=== PATIENT | female | born 1980 | race Caucasian/White ===

== ENCOUNTER 2017-08-12 19:15 | Emergency (ER) | payer SELFPAY ==
[~2017-08-12] VITALS: Ht 177.8 cm; Wt 100.0 kg
[~2017-08-12 19:15] MED LIST: CLIN1CAP5 PO; IBUP800T23 PO; OMEP20TA39 PO; ZOLP10TA3 PO
[2017-08-12 19:23] VITALS: BP 145/92; PULSE 101; RESP 18; TEMP 97.3; O2SAT 94
[2017-08-12] MEDS ORDERED: SODIUM CHLOR 0.9% 1000 ML INJ 1,000 ML IV ONE (20:45)
[2017-08-12] MEDS ORDERED: ONDANSETRON ODT 4 MG TAB PO ONE (20:45)
[2017-08-12] MEDS ORDERED: KETOROLAC TROMETHAMINE 30 MG/ML (IVP) VIAL IV PUSH ONE (20:45)
--- NOTE | 2017-08-12 20:48 | PD ---
HPI Chief Complaint: Abdominal Pain Time Seen by Provider: 20:22 Travel History International Travel<30 days: No Contact w/Intl Traveler<30days: No Traveled to known affect area: No History of Present Illness HPI 37-year-old female complains of abdominal pain, nausea vomiting diarrhea. Patient states that symptoms started 3 days ago. Patient had a syncopal episode this evening. Patient has history of recurrent syncope in the past. 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 Patient was advised salt loading increase fluids. Patient has been doing well without syncopal episode for a long time. Patient states that she started having abdominal cramping with nausea vomiting diarrhea for the past 3 days. She states that symptoms are worse today. Patient states that she passed out this evening at home. Patient states that she has aching headache diffuse over the head since last night. Patient denies any visual change. Patient denies any neck pain. Patient denies any chest pain or shortness of breath. Patient states abdominal pain and cramping pain diffuse of the abdomen. Patient denies any pain radiation. Patient denies any dysuria frequency. Patient denies any vaginal discharge or bleeding. Patient denies any fever chills. Patient states that she did not injure herself during the syncopal episode. PFSH Past Medical History Heart Rhythm Problems: Yes (cardiogenic sycope ) Diminished Hearing: No Tetanus Vaccination: Unknown Influenza Vaccination: No ?: Not LMP: 07/28/2017 Past Surgical History Cholecystectomy: Yes Other Surgery: Yes (breast augmentation and tummy tuck) Social History Alcohol Use: No Tobacco Use: No Substance Use: No Allergies-Medications (Allergen,Severity, Reaction): Coded Allergies: amoxicillin (Unverified Allergy, Unknown, 08/12/17) Reported Meds & Prescriptions Reported Meds & Active Scripts Active Ibuprofen 800 Mg Tab 800 Mg PO TID 10 Days Clindamycin Hcl (Clindamycin HCl) 150 Mg Cap 300 Mg PO Q6H 10 Days Reported Hm Omeprazole (Omeprazole) 20 Mg Tab 40 Mg PO DAILY Ambien 10 Mg Tab (Zolpidem Tartrate) 10 Mg Tab 10 Mg PO HS Review of Systems General / Constitutional: No: Fever Eyes: No: Visual changes HENT: No: Headaches Cardiovascular: No: Chest Pain or Discomfort Respiratory: No: Shortness of Breath Gastrointestinal: Positive: Nausea, Vomiting, Diarrhea, Abdominal Pain Genitourinary: No: Dysuria Musculoskeletal: No: Pain Skin: No Rash Neurologic: No: Weakness Psychiatric: No: Depression Endocrine: No: Polydipsia Hematologic/Lymphatic: No: Easy Bruising Physical Exam Narrative GENERAL: Well-nourished, well-developed patient. SKIN: Focused skin assessment warm/dry. HEAD: Normocephalic. EYES: No scleral icterus. No injection or drainage. Pupils equal round reactive. NECK: Supple, trachea midline. No JVD or lymphadenopathy. No meningismus CARDIOVASCULAR: Regular rate and rhythm without murmurs, gallops, or rubs. RESPIRATORY: Breath sounds equal bilaterally. No accessory muscle use. GASTROINTESTINAL: Abdomen soft, nondistended. Patient has mild diffuse tenderness over the abdomen. No rebound tenderness. No mass. MUSCULOSKELETAL: No cyanosis, or edema. BACK: Nontender without obvious deformity. No CVA tenderness. Neurologic exam normal. Data Data Last Documented VS Vital Signs Date Time Temp Pulse Resp B/P (MAP) Pulse Ox O2 Delivery O2 Flow Rate FiO2 08/12/17 19:23 97.3 101 18 145/92 (109) 94 Orders Orders Complete Blood Count With Diff (08/12/17 20:32) Comprehensive Metabolic Panel (08/12/17 20:32) Lipase (08/12/17 20:32) Urinalysis - C+S If Indicated (08/12/17 20:32) Iv Access Insert/Monitor (08/12/17 20:32) Ecg Monitoring (08/12/17 20:32) Oximetry (08/12/17 20:32) Ed Urine Pregnancytest Poc (08/12/17 20:32) Ct Brain W/O Iv Contrast(Rout) (08/12/17 20:32) Sodium Chlor 0.9% 1000 Ml Inj (Ns 1000 M (08/12/17 20:45) Ondansetron Odt (Zofran Odt) (08/12/17 20:45) Ketorolac Inj (Toradol Inj) (08/12/17 20:45) Drug Screen, Random Urine (08/12/17 21:50) Metoclopramide Inj (Reglan Inj) (08/12/17 22:00) Diphenhydramine Inj (Benadryl Inj) (08/12/17 22:00) Ct Abd/Pel W Iv Contrast(Rout) (08/12/17 21:53) Urine Culture (08/12/17 21:50) Iohexol 350 Inj (Omnipaque 350 Inj) (08/12/17 22:34) Labs Laboratory Tests Test 08/12/17 21:05 08/12/17 21:50 White Blood Count 19.5 TH/MM3 Red Blood Count 4.20 MIL/MM3 Hemoglobin 11.0 GM/DL Hematocrit 33.3 % Mean Corpuscular Volume 79.3 FL Mean Corpuscular Hemoglobin 26.2 PG Mean Corpuscular Hemoglobin Concent 33.0 % Red Cell Distribution Width 17.5 % Platelet Count 298 TH/MM3 Mean Platelet Volume 8.9 FL Neutrophils (%) (Auto) 84.3 % Lymphocytes (%) (Auto) 9.0 % Monocytes (%) (Auto) 6.3 % Eosinophils (%) (Auto) 0.1 % Basophils (%) (Auto) 0.3 % Neutrophils # (Auto) 16.5 TH/MM3 Lymphocytes # (Auto) 1.8 TH/MM3 Monocytes # (Auto) 1.2 TH/MM3 Eosinophils # (Auto) 0.0 TH/MM3 Basophils # (Auto) 0.1 TH/MM3 CBC Comment DIFF FINAL Differential Comment Blood Urea Nitrogen 11 MG/DL Creatinine 0.86 MG/DL Random Glucose 136 MG/DL Total Protein 8.2 GM/DL Albumin 4.1 GM/DL Calcium Level 8.7 MG/DL Alkaline Phosphatase 73 U/L Aspartate Amino Transf (AST/SGOT) 46 U/L Alanine Aminotransferase (ALT/SGPT) 51 U/L Total Bilirubin 0.2 MG/DL Sodium Level 140 MEQ/L Potassium Level 3.9 MEQ/L Chloride Level 107 MEQ/L Carbon Dioxide Level 19.2 MEQ/L Anion Gap 14 MEQ/L Estimat Glomerular Filtration Rate 75 ML/MIN Lipase 86 U/L Urine Color YELLOW Urine Turbidity HAZY Urine pH 5.5 Urine Specific Pinson 1.023 Urine Protein 100 mg/dL Urine Glucose (UA) NEG mg/dL Urine Ketones NEG mg/dL Urine Occult Blood TRACE Urine Nitrite NEG Urine Bilirubin NEG Urine Urobilinogen LESS THAN 2.0 MG/DL Urine Leukocyte Esterase SMALL Urine RBC 4 /hpf Urine WBC 25 /hpf Urine Squamous Epithelial Cells 11 /hpf Urine Amorphous Sediment RARE Urine Bacteria FEW /hpf Urine Hyaline Casts 86 /lpf Urine Mucus MANY /lpf Microscopic Urinalysis Comment CULTURE INDICATED Urine Opiates Screen POS Urine Barbiturates Screen NEG Urine Amphetamines Screen NEG Urine Benzodiazepines Screen NEG Urine Cocaine Screen NEG Urine Cannabinoids Screen NEG MDM Medical Decision Making Medical Screen Exam Complete: Yes Emergency Medical Condition: Yes Interpretation(s) 22:40 PM. CBC WBC 19.5. Hemoglobin 11.0 hematocrit 33.3. MCV 79.3. 84 neutrophil. Bicarb 19.2. Urine drug screen positive opiates. UA positive for WBC and bacteria. Differential Diagnosis Differential diagnosis including gastroenteritis, dehydration, electrolyte imbalance, vasovagal reaction, migraine headache, tension headache, cluster headache. Narrative Course 37-year-old female with abdominal cramping, nausea vomiting diarrhea and syncope. Normal saline solution 1 L IV bolus. Zofran 4 mg ODT. Toradol 30 mg IV. Reglan 10 mg IV. Benadryl 25 mg IV. Bactrim DS 1 tablet p.o. given. Diagnosis Primary Impression: Gastroenteritis Additional Impressions: Syncope Qualified Codes: R55 - Syncope and collapse UTI (urinary tract infection) Qualified Codes: N30.00 - Acute cystitis without hematuria Patient Instructions: General Instructions Additional Instructions: Take medications as directed. Tylenol for headache. Follow-up with personal physician. Return if persistent problem or worse. Med/Other Pt SpecificInfo: Prescription(s) given Scripts Dicyclomine (Bentyl) 10 Mg Cap 10 MG PO TID Y for Bowel Management, #15 CAP 0 Refills Prov: Julian John MD 08/12/17 Ondansetron Odt (Zofran Odt) 4 Mg Tab 4 MG SL Q6HR Y for Nausea/Vomiting, #10 TAB 0 Refills Prov: Julian John MD 08/12/17 Sulfamethoxazole-Trimethoprim (Bactrim DS) 800-160 Mg Tab 1 TAB PO BID for Infection, #14 TAB 0 Refills Prov: Julian John MD 08/12/17 Disposition: 01 DISCHARGE HOME Condition: Stable Julian John MD Aug 12, 2017 20:48
[2017-08-12 21:39] LABS: AUTOMATED NEUTROPHIL # 16.5 TH/MM3 (1.8-7.7); BASOPHIL # 0.1 TH/MM3 (0-0.2); BASOPHIL % 0.3 % (0.0-2.0); EOSINOPHIL % 0.1 % (0.0-4.0); HEMATOCRIT 33.3 % (35.0-46.0); LYMPHOCYTE # 1.8 TH/MM3 (1.0-4.8); MEAN CELL VOLUME 79.3 FL (80.0-100.0); MEAN CORPUSCULAR HEMOGLOBIN 26.2 PG (27.0-34.0); MEAN PLATELET VOLUME 8.9 FL (7.0-11.0); MONO % 6.3 % (0.0-8.0); MONOCYTE # 1.2 TH/MM3 (0-0.9); NEUT % 84.3 % (16.0-70.0); PLATELET COUNT 298 TH/MM3 (150-450); RED CELL DISTRIBUTION WIDTH 17.5 % (11.6-17.2); WHITE BLOOD COUNT 19.5 TH/MM3 (4.0-11.0)
[2017-08-12 21:54] LABS: ALT (GPT) 51 U/L (10-53)
[2017-08-12 21:56] LABS: ALKALINE PHOSPHATASE 73 U/L (45-117); TOTAL BILIRUBIN ADULT 0.2 MG/DL (0.2-1.0); TOTAL PROTEIN 8.2 GM/DL (6.4-8.2)
[2017-08-12] MEDS ORDERED: METOCLOPRAMIDE HCL 10 MG/2 ML VIAL IV PUSH ONE (22:00)
[2017-08-12] MEDS ORDERED: diphenhydrAMINE HCL 50 MG/ML VIAL IV PUSH ONE (22:00)
[2017-08-12 22:03] LABS: ALBUMIN 4.1 GM/DL (3.4-5.0); AST (GOT) 46 U/L (15-37); BICARBONATE 19.2 MEQ/L (21.0-32.0); BLOOD UREA NITROGEN 11 MG/DL (7-18); CALCIUM 8.7 MG/DL (8.5-10.1); CHLORIDE 107 MEQ/L (98-107); CREATININE 0.86 MG/DL (0.50-1.00); GLOMERULAR FILTRATION RATE 75 ML/MIN (>89); GLUCOSE,RANDOM 136 MG/DL (74-106); SODIUM (NA) 140 MEQ/L (136-145)
[2017-08-12 22:29] LABS: AMORPHOUS SEDIMENT, URINE RARE; BACTERIA, URINE FEW /hpf; BILIRUBIN, URINE NEG (NEG); BLOOD, URINE TRACE (NEG); GLUCOSE,URINE NEG (NEG); HYALINE CAST, URINE 86 /lpf (RARE); KETONE, URINE NEG (NEG); MUCUS URINE MANY /lpf (OCC); NITRITE,URINE NEG (NEG); PH, URINE 5.5 (5.0-8.5); SQUAMOUS EPITHELIAL CELL URINE 11 /hpf (0-5); URINE COLOR YELLOW (YELLW/STRAW); URINE LEUKOCYTE ESTERASE SMALL (NEG)
--- NOTE | 2017-08-12 22:30 | RADRPT ---
EXAM DATE: 08/12/2017 10:22 PM EDT AGE/SEX: 37 years / Female INDICATIONS: Headache and possible syncopal episode. CLINICAL DATA: This is the patient's initial encounter. Patient reports that signs and symptoms have been present for 3 days and indicates a pain score of 6/10. MEDICAL/SURGICAL HISTORY: Cardiovascular disease. Cholecystectomy. Breast augmentation, tummy tuck RADIATION DOSE: 56.35 CTDI (mGy) COMPARISON: No prior exams available for comparison. TECHNIQUE: CT of the head without contrast. Using automated exposure control and adjustment of the mA and/or kV according to patient size, radiation dose was kept as low as reasonably achievable to ob tain optimal diagnostic quality images. FINDINGS: Cerebrum: The ventricles are normal for age. No evidence of midline shift, mass lesion, hemorrhage or acute infarction. No extraaxial fluid collections are seen. Posterior Fossa: The cerebellum and brainstem are intact. The 4th ventricle is midline. The cerebe llopontine angle is unremarkable. Extracranial: The visualized portion of the orbits is intact. Skull: The calvaria is intact. No evidence of skull fracture. CONCLUSION: 1. No acute intracranial abnormalities. Electronically signed by: Peng Brian MD 08/12/2017 10:29 PM EDT
[2017-08-12] MEDS ORDERED: IOHEXOL 350 MG/ML 10 ML VIAL (for RAD DIAG) IVCONTRAST ONE (22:34)
--- NOTE | 2017-08-12 22:40 | RADRPT ---
EXAM DATE: 08/12/2017 10:32 PM EDT AGE/SEX: 37 years / Female INDICATIONS: Abdominal pain and diarrhea X 3 days. CLINICAL DATA: This is the patient's initial encounter. Patient reports that signs and symptoms have been present for 3 days and indicates a pain score of 6/10. MEDICAL/SURGICAL HISTORY: Cardiovascular disease. Cholecystectomy. Breast augmentation, tummy t uck ORAL CONTRAST: No oral contrast ingested. RADIATION DOSE: 9.36 CTDI (mGy) COMPARISON: No prior exams available for comparison. TECHNIQUE: Multiple contiguous axial images were obtained through the abdomen and pelvis following b olus infusion of 92 ml Omnipaque 350 (iohexol) nonionic water-soluble contrast as a single exam dos e. No oral contrast ingested. Using automated exposure control and adjustment of the mA and/or kV ac cording to patient size, the radiation dose was kept as low as reasonably achievable to obtain optima l diagnostic quality images. FINDINGS: Lung bases are clear. Mild fatty liver. Spleen, adrenals, kidneys and pancreas unremarkable. Cholecys tectomy with common bile duct measuring up to 14 mm in diameter. No free fluid. No bowel obstruction. No adenopathy. Small hiatal hernia. No acute bony abnormalities. Previous breast augmentation. CONCLUSION: 1. No acute findings on abdomen and pelvic CT. Previous cholecystectomy with biliary ductal dilatati on to 14 mm. No obstruction, free fluid or free air. Small hiatal hernia. Electronically signed by: Peng Brian MD 08/12/2017 10:39 PM EDT
[2017-08-12] MEDS ORDERED: DICY10 PO (22:51)
[2017-08-12] MEDS ORDERED: BACT800T5 PO (22:51)
[2017-08-12] MEDS ORDERED: ZOFR4TAB3 SL (22:51)
[2017-08-12] MEDS ORDERED: SULFAMETHOXAZOLE-TRIMETHOPRIM DS 800-160 MG TAB PO ONE (23:00)
== END 2017-08-12 23:14 | disposition home or self-care (01) ==
LOC: NEPD 19:15
DX: K52.9 Noninfective gastroenteritis and colitis, unspecified (principal); R55 Syncope and collapse; N30.00 Acute cystitis without hematuria; K44.9 Diaphragmatic hernia without obstruction or gangrene; Z90.49 Acquired absence of other specified parts of digestive tract; Z88.0 Allergy status to penicillin; Z79.899 Other long term (current) drug therapy
CPT/HCPCS: 70450; 74177; 80053; 80307; 81001; 83690; 84703; 85025; 87086; 96361; 96374; 96375; 99284; J1200; J1885; J2765; J7030; Q9967